=== PATIENT | female | born 1945 | race Caucasian/White ===

== ENCOUNTER 2024-03-31 13:18 | Inpatient (IN) | payer MEDICARE ==
[2024-03-31 14:39] LABS: #Basophils 0.06 10x3/uL (0.0-0.2); %Basophils 0.5 % (0.0-1.0); %Eosinophils 0.6 % (0.0-10.0); %Lymphocytes 7.9 % (21.0-51.0); %Monocytes 8.1 % (0.0-10.0); %Neutrophils 82.6 % (42.0-75.0); Hematocrit 45.4 % (36.0-47.0); Hemoglobin 13.8 g/dL (12.0-16.0); Mean Corpuscular HGB CONC 30.4 g/dL (32.0-36.0); Mean Corpuscular Hemoglobin 26.5 pg (27.0-31.0); Mean Corpuscular Volume 87.1 fL (78.0-98.0); Mean Platelet Volume 11.6 fL (7.4-10.4); Platelet Count 353 10x3/uL (130-400); RBC Distribution Width 14.8 % (11.5-14.5); Red Blood Cell (RBC) Count 5.21 mill/uL (4.20-5.40)
[2024-03-31 14:47] LABS: ALT (SGPT) 44 U/L (8-55); AST (SGOT) 53 U/L (5-34); Albumin 3.4 g/dL (3.4-4.8); Alkaline Phosphatase 153 U/L (40-110); Anion Gap 18 mmol/L (10-20); BUN (Urea Nitrogen) 21 mg/dL (9.8-20.1); Bilirubin, Total 0.9 mg/dL (0.2-1.2); CK (CPK) 1031 U/L (29-168); Calc. Creatinine Clearance 0 mL/min (70-130); Calcium 9.6 mg/dL (7.8-10.44); Carbon Dioxide 21 mmol/L (23-31); Chloride 110 mmol/L (98-107); Estimated GFR 80; Globulin 4.2 g/dL (2.4-3.5); Glucose 106 mg/dL (83-110); Potassium 3.4 mmol/L (3.5-5.1); Protein, Total 7.6 g/dL (5.8-8.1); Sodium 146 mmol/L (136-145)
[2024-03-31 14:53] LABS: Troponin I 0.029 ng/mL (< 0.028)
[2024-03-31] MEDS ORDERED: Bisacodyl 10 MG SUPP PR PRN (16:38)
[2024-03-31] MEDS ORDERED: Bisacodyl 5 MG TAB PO PRN (16:38)
[2024-03-31 17:08] LABS: Bilirubin 1+ (Negative); Blood, Urine 2+ (Negative); CAUTI Indications for Culture Pelvic or flank pain; Clarity Turbid (Clear); Glucose, Urine (Dipstick) Normal (Negative); Ketone, Urine Greater than 150 mg/dL (Negative); Leukocyte 500 Leu/uL (Negative); Nitrite Negative (Negative); Protein, Urine (Dipstick) 70 mg/dL (Neg-Trace); Specific Gravity, Urine 1.032 (1.002-1.036); Urobilinogen 3 mg/dL (Less than 2)
[2024-03-31 17:17] LABS: Bacteria/HPF 1+ HPF (None Seen)
[2024-03-31 17:18] LABS: Urine Culture Reflex No No
[2024-03-31 19:19] LABS: Troponin I 0.023 ng/mL (< 0.028)
[2024-03-31 20:17] LABS: Anion Gap 16 mmol/L (10-20); BUN (Urea Nitrogen) 20 mg/dL (9.8-20.1); CK (CPK) 841 U/L (29-168); Calc. Creatinine Clearance 0 mL/min (70-130); Calcium 8.9 mg/dL (7.8-10.44); Carbon Dioxide 20 mmol/L (23-31); Chloride 113 mmol/L (98-107); Estimated GFR 84; Glucose 138 mg/dL (83-110); Potassium 3.3 mmol/L (3.5-5.1); Sodium 146 mmol/L (136-145)
[2024-03-31] MEDS: cefTRIAXone\\ROCEPHIN 2 GM in Sodium Chloride 0.9% 100 ML IVPB SCH (21:38)
[2024-03-31] MEDS: Acetaminophen 325 MG TAB PO PRN (21:38)
[2024-03-31] MEDS: Famotidine 20 MG TAB PO SCH (21:39)
[2024-03-31] MEDS: Sodium Chloride 0.9% 1,000 ML IV SCH (21:40)
[2024-03-31 21:43] LABS: Troponin I 0.043 ng/mL (< 0.028)
[2024-03-31 22:08] VITALS: BMI 33.7
[2024-03-31 22:13] LABS: Bilirubin 1+ (Negative); Blood, Urine 2+ (Negative); CAUTI Indications for Culture Pelvic or flank pain; Clarity Clear (Clear); Glucose, Urine (Dipstick) Normal (Negative); Ketone, Urine 60 mg/dL (Negative); Leukocyte 500 Leu/uL (Negative); Nitrite Negative (Negative); Protein, Urine (Dipstick) 30 mg/dL (Neg-Trace); Urobilinogen 3 mg/dL (Less than 2)
[2024-03-31 22:14] LABS: Squamous Epithelial 0-3 HPF (0-3)
[2024-03-31 22:15] LABS: Bacteria/HPF 1+ HPF (None Seen)
[2024-03-31 22:16] LABS: Urine Culture Reflex No No
[2024-04-01 06:19] LABS: #Basophils 0.08 10x3/uL (0.0-0.2); %Basophils 0.9 % (0.0-1.0); %Eosinophils 4.2 % (0.0-10.0); %Lymphocytes 16.2 % (21.0-51.0); %Monocytes 11.3 % (0.0-10.0); %Neutrophils 66.9 % (42.0-75.0); Hematocrit 40.8 % (36.0-47.0); Hemoglobin 12.4 g/dL (12.0-16.0); Mean Corpuscular HGB CONC 30.4 g/dL (32.0-36.0); Mean Corpuscular Hemoglobin 26.5 pg (27.0-31.0); Mean Corpuscular Volume 87.2 fL (78.0-98.0); Mean Platelet Volume 11.2 fL (7.4-10.4); Platelet Count 297 10x3/uL (130-400); Red Blood Cell (RBC) Count 4.68 mill/uL (4.20-5.40)
[2024-04-01 06:44] LABS: Lactic Acid 0.97 mmol/L (0.5-2.2)
[2024-04-01 06:53] LABS: ALT (SGPT) 32 U/L (8-55); AST (SGOT) 31 U/L (5-34); Albumin 2.7 g/dL (3.4-4.8); Alkaline Phosphatase 116 U/L (40-110); Anion Gap 14 mmol/L (10-20); BUN (Urea Nitrogen) 16 mg/dL (9.8-20.1); Bilirubin, Total 0.6 mg/dL (0.2-1.2); CK (CPK) 499 U/L (29-168); Calc. Creatinine Clearance 112 mL/min (70-130); Calcium 8.5 mg/dL (7.8-10.44); Carbon Dioxide 22 mmol/L (23-31); Chloride 113 mmol/L (98-107); Estimated GFR 90; Globulin 3.4 g/dL (2.4-3.5); Glucose 104 mg/dL (83-110); Phosphorus 3.3 mg/dL (2.3-4.7); Potassium 3.2 mmol/L (3.5-5.1); Protein, Total 6.1 g/dL (5.8-8.1); Sodium 146 mmol/L (136-145)
[2024-04-01] MEDS: Enoxaparin 40 MG (0.4 mL) SYRINGE SC SCH (09:30)
[2024-04-01 10:27] VITALS: BMI 33.3
[2024-04-01] MEDS: Metoprolol Tartrate 25 MG TAB PO SCH ×2 (15:38→20:48)
[2024-04-01] MEDS: Rivaroxaban 10 MG TAB PO SCH (17:05)
[2024-04-01] MEDS: traMADol HCl 50 MG TAB PO PRN (19:19)
[2024-04-01] MEDS: Amlodipine 5 MG TAB PO SCH (20:45)
[2024-04-02 06:06] LABS: #Basophils 0.07 10x3/uL (0.0-0.2); %Eosinophils 5.1 % (0.0-10.0); %Lymphocytes 24.1 % (21.0-51.0); %Monocytes 13.2 % (0.0-10.0); %Neutrophils 56.2 % (42.0-75.0); Hematocrit 35.8 % (36.0-47.0); Hemoglobin 11.1 g/dL (12.0-16.0); Mean Corpuscular Hemoglobin 26.6 pg (27.0-31.0); Mean Corpuscular Volume 85.9 fL (78.0-98.0); Mean Platelet Volume 11.2 fL (7.4-10.4); Platelet Count 251 10x3/uL (130-400); Red Blood Cell (RBC) Count 4.17 mill/uL (4.20-5.40)
[2024-04-02 06:13] LABS: ALT (SGPT) 26 U/L (8-55); AST (SGOT) 21 U/L (5-34); Albumin 2.5 g/dL (3.4-4.8); Alkaline Phosphatase 91 U/L (40-110); Anion Gap 11 mmol/L (10-20); BUN (Urea Nitrogen) 10 mg/dL (9.8-20.1); Bilirubin, Total 0.4 mg/dL (0.2-1.2); Calc. Creatinine Clearance 118 mL/min (70-130); Carbon Dioxide 23 mmol/L (23-31); Chloride 112 mmol/L (98-107); Estimated GFR 90; Globulin 2.9 g/dL (2.4-3.5); Glucose 100 mg/dL (83-110); Magnesium 1.8 mg/dL (1.6-2.6); Protein, Total 5.4 g/dL (5.8-8.1); Sodium 143 mmol/L (136-145)
[2024-04-02] MEDS ORDERED: Electrolyte Replacement Protocol 1 EACH FS SCH (06:40)
[2024-04-02] MEDS ORDERED: Potassium Chloride 40 MEQ in Premix 1 BAG IVPB SCH (08:00)
[2024-04-02] MEDS: Potassium Bicarbonate/Cit Ac 20 MEQ TAB PO SCH (08:58)
[2024-04-02] MEDS: Flecainide Acetate 100 MG TAB PO SCH (08:59)
[2024-04-02] MEDS: Magnesium 2 GM/50 ML(in water) 2 GM in Premix 1 BAG IVPB SCH (09:00)
[2024-04-02] MEDS: Potassium Chloride 20 MEQ in Premix 1 BAG IVPB SCH (09:03)
[2024-04-02] MEDS: Propranolol 10 MG TAB PO SCH (09:03)
[2024-04-02] MEDS: Meclizine HCl 25 MG TAB PO PRN (15:14)
[2024-04-02] MEDS: Ondansetron PF 4 MG/2 ML Vial IVP PRN (15:22)
[2024-04-03 05:14] LABS: #Basophils 0.06 10x3/uL (0.0-0.2); %Basophils 0.9 % (0.0-1.0); %Eosinophils 4.6 % (0.0-10.0); %Lymphocytes 25.7 % (21.0-51.0); %Monocytes 13.3 % (0.0-10.0); %Neutrophils 55.2 % (42.0-75.0); Hematocrit 37.6 % (36.0-47.0); Hemoglobin 11.2 g/dL (12.0-16.0); Mean Corpuscular HGB CONC 29.8 g/dL (32.0-36.0); Mean Corpuscular Hemoglobin 26.6 pg (27.0-31.0); Mean Corpuscular Volume 89.3 fL (78.0-98.0); Platelet Count 250 10x3/uL (130-400); RBC Distribution Width 15.1 % (11.5-14.5); Red Blood Cell (RBC) Count 4.21 mill/uL (4.20-5.40)
[2024-04-03 05:45] LABS: ALT (SGPT) 23 U/L (8-55); AST (SGOT) 18 U/L (5-34); Albumin 2.5 g/dL (3.4-4.8); Alkaline Phosphatase 83 U/L (40-110); Anion Gap 11 mmol/L (10-20); BUN (Urea Nitrogen) 8 mg/dL (9.8-20.1); Bilirubin, Total 0.3 mg/dL (0.2-1.2); Calc. Creatinine Clearance 111 mL/min (70-130); Carbon Dioxide 22 mmol/L (23-31); Chloride 111 mmol/L (98-107); Estimated GFR 88; Glucose 99 mg/dL (83-110); Magnesium 1.9 mg/dL (1.6-2.6); Potassium 3.3 mmol/L (3.5-5.1); Protein, Total 5.5 g/dL (5.8-8.1); Sodium 141 mmol/L (136-145)
[2024-04-03] MEDS: Potassium Chloride 20 MEQ TAB PO SCH (08:48)
[2024-04-03] MEDS: Magnesium 2 GM/50 ML(in water) 2 GM in Premix 1 BAG IVPB SCH (08:49)
[2024-04-03] MEDS: Gabapentin 300 MG CAP PO SCH (08:49)
[2024-04-03] MEDS: Amlodipine 5 MG TAB PO SCH (08:49)
[2024-04-04] MEDS ORDERED: Losartan 25 MG TAB PO SCH ×2 (09:00)
[2024-04-04] MEDS: Losartan 25 MG TAB PO SCH (09:11)
[2024-04-04 09:59] LABS: Anion Gap 10 mmol/L (10-20); BUN (Urea Nitrogen) 7 mg/dL (9.8-20.1); Calc. Creatinine Clearance 108 mL/min (70-130); Calcium 8.6 mg/dL (7.8-10.44); Carbon Dioxide 28 mmol/L (23-31); Chloride 105 mmol/L (98-107); Estimated GFR 87; Glucose 100 mg/dL (83-110); Sodium 139 mmol/L (136-145)
[2024-04-05 13:59] VITALS: BP 161/68; TEMP 98
== END 2024-04-05 18:46 | disposition home health service (06) | DRG 558 ==
LOC: ERS 13:18 → ERHOLD 15:32 → 2NO 18:12
PROVIDERS: ADMIT Internal Medicine; ATTEND Internal Medicine
DX: M62.82 Rhabdomyolysis (principal); N39.0 Urinary tract infection, site not specified; E87.6 Hypokalemia; R42 Dizziness and giddiness; R82.71 Bacteriuria; I48.0 Paroxysmal atrial fibrillation; I10 Essential (primary) hypertension; E86.0 Dehydration; D72.829 Elevated white blood cell count, unspecified; W19.XXXA Unspecified fall, initial encounter; E66.01 Morbid (severe) obesity due to excess calories; Y93.89 Activity, other specified; Z88.5 Allergy status to narcotic agent; Y92.096 Garden or yard of other non-institutional residence as the place of occurrence of the external cause; Z68.35 Body mass index [BMI] 35.0-35.9, adult; Z79.01 Long term (current) use of anticoagulants
CPT/HCPCS: 36415; 70450; 80048; 80053; 80069; 81001; 82550; 83605; 83735; 83880; 84484; 85025; J0696; J1650; J2405; J3475; J3480; J7030